=== PATIENT | male | born 1970 | race African-American/Black ===

== ENCOUNTER 2020-05-05 05:17 | Emergency (ER) | payer OTHER ==
[~2020-05-05 05:17] MED LIST: NAPROSYN375 MG PO; PEPCID40 MG PO; TESSALON PERLE100 MG PO; VENTOLIN HFA IN18 GM INH
== END 2020-05-05 06:10 | disposition home or self-care (01) ==
LOC: FER 05:17
DX: S30.812A Abrasion of penis, initial encounter (principal); Z87.442 Personal history of urinary calculi; X58.XXXA Exposure to other specified factors, initial encounter
CPT/HCPCS: 99283

== ENCOUNTER 2020-06-18 10:36 | Emergency (ER) | payer OTHER ==
[2020-06-18] MEDS ORDERED: CYCLOBENZAPRINE10 MG PO (12:21)
[2020-06-18] MEDS ORDERED: MEDROL 4MG DOSEP4 MG PO (12:21)
== END 2020-06-18 12:30 | disposition home or self-care (01) ==
LOC: FER 10:36
DX: M48.061 Spinal stenosis, lumbar region without neurogenic claudication (principal)
CPT/HCPCS: 72131